=== PATIENT | male | born 1995 | race Caucasian/White ===

== ENCOUNTER 2022-04-21 02:07 | Emergency (ER) | payer MEDICAID ==
[~2022-04-21] VITALS: Ht 175.3 cm; Wt 83.9 kg
[2022-04-21 02:10] VITALS: BP 138/87
--- NOTE | 2022-04-21 02:13 | NUR ---
TO LOBBY A/W BED AMBULATORY
--- NOTE | 2022-04-21 03:20 | NUR ---
PT TAKEN TO BED 9
--- NOTE | 2022-04-21 04:19 | NUR ---
X-Ray at bedside.
[2022-04-21] MEDS ORDERED: BACI1PAC6 TP (04:49)
[2022-04-21] MEDS ORDERED: BACITRACIN OINT 500 UNITS/GM PKT TP ONE (04:50)
[2022-04-21 05:01] VITALS: BP 138/87
--- NOTE | 2022-04-21 05:03 | NUR ---
Patient discharged with v/s stable BY ERMD. Written and verbal after care instructions given and explained. Patient alert, oriented and verbalized understanding of instructions. Ambulatory with steady gait. All questions addressed prior to discharge. ID band removed. Patient advised to follow up with PMD. Rx ofBACITRACIN ZINC OINTMENT given. Patient educated on indication of medication including possible reaction and side effects. Opportunity to ask questions provided and answered.
== END 2022-04-21 05:03 | disposition home or self-care (01) ==
LOC: MED 02:07
DX: S61.201A Unspecified open wound of left index finger without damage to nail, initial encounter (principal); S61.203A Unspecified open wound of left middle finger without damage to nail, initial encounter; Z23 Encounter for immunization; Z79.899 Other long term (current) drug therapy; W45.8XXA Other foreign body or object entering through skin, initial encounter; Y93.89 Activity, other specified; Y92.89 Other specified places as the place of occurrence of the external cause; Y99.8 Other external cause status
CPT/HCPCS: 73140; 90471; 90715; 99283

== ENCOUNTER 2022-04-30 07:36 | Emergency (ER) | payer MEDICAID ==
[~2022-04-30] VITALS: Ht 175.3 cm; Wt 89.8 kg
[~2022-04-30 07:36] MED LIST: BACI1PAC6 TP
[2022-04-30 07:56] VITALS: BP 149/75
--- NOTE | 2022-04-30 07:59 | NUR ---
PT AMBULATED TO LOBBY
--- NOTE | 2022-04-30 08:00 | NUR ---
26YR OLD MALE BIB SELF C/O KEENAN AND NASAL PRESSURE X1WEEK. PT STATES YELLOWISH DRAINAGE WHEN BLOWING NOSE. DENIES CP OR SOB. RESP EVEN AND UNLABORED. SKIN WARM AND DRY. 6/10 PAIN LEVEL. HOB ELEVATED BED AT LOWEST POSITION NKDA NO MED HX
--- NOTE | 2022-04-30 09:02 | NUR ---
PT AMBULATED WITH STEADY GAIT TO BED 7
[2022-04-30] MEDS ORDERED: LORATADINE 10 MG TAB PO ONE (10:55)
[2022-04-30] MEDS ORDERED: ACETAMINOPHEN EXTRA STRENGTH 500 MG TAB PO ONE (10:55)
[2022-04-30] MEDS ORDERED: AMOXIL/CLAVULANATE 875/125 MG 1 TAB PO ONE (11:05)
[2022-04-30] MEDS ORDERED: ACET-10509 PO (11:27)
[2022-04-30] MEDS ORDERED: SUD30 PO (11:27)
[2022-04-30] MEDS ORDERED: FLONAS NS (11:27)
[2022-04-30] MEDS ORDERED: AMOX-999 PO (11:27)
--- NOTE | 2022-04-30 11:33 | NUR ---
COVID SWAB COLLECTED AND SENT TO LAB
[2022-04-30 11:55] VITALS: BP 127/95
--- NOTE | 2022-04-30 11:55 | NUR ---
Patient discharged with v/s stable. Written and verbal after care instructions given and explained. Patient alert, oriented and verbalized understanding of instructions. Ambulatory with steady gait. All questions addressed prior to discharge. ID band removed. Patient advised to follow up with PMD. Rx of ACETAMINOPHEN AMOXICILLIN FLONASE NASAL SUDAFED given.
--- NOTE | 2022-04-30 11:56 | NUR ---
Chart checked and completed. The patient's care was reviewed and supervised by Juanita Dean RN.
== END 2022-04-30 11:55 | disposition home or self-care (01) ==
LOC: MED 07:36
DX: J01.10 Acute frontal sinusitis, unspecified (principal); Z20.822 Contact with and (suspected) exposure to COVID-19
CPT/HCPCS: 99284